=== PATIENT | female | born 1960 | race Caucasian/White ===

== ENCOUNTER 2021-05-20 20:42 | Inpatient (IN) | payer SELFPAY ==
[2021-05-20 23:04] VITALS: BMI 28.9
[2021-05-20] MEDS: Lactated Ringer's 1,000 ML IV SCH (23:47)
[2021-05-21] MEDS ORDERED: Acetaminophen 500 MG TAB PO PRN (01:44)
[2021-05-21] MEDS ORDERED: Potassium Chloride 20 MEQ TAB PO SCH ×2 (02:30→11:30)
[2021-05-21 03:11] LABS: Amphetamine Detected (NotDetected); Barbiturates Screen Not Detected (NotDetected); Benzodiazepine Screen Not Detected (NotDetected); Cocaine Metabolite Screen Not Detected (NotDetected); Methadone Not Detected (NotDetected); Methamphetamine Not Detected (NotDetected); Opiate Screen Not Detected (NotDetected); Oxycodone Screen Not Detected (NotDetected); Phencyclidine (PCP) Not Detected (NotDetected); THC/Cannabinoid Screen Detected (NotDetected); Tricyclic Screen Not Detected (NotDetected)
[2021-05-21 07:12] LABS: #Lymphocytes 1.5 thou/uL (1.20-3.40); #Monocytes 0.5 thou/uL (0.11-0.59); #Neutrophils 6.7 thou/uL (1.40-6.50); %Basophils 0.5 % (0.0-1.0); %Eosinophils 0.4 % (0.0-10.0); %Lymphocytes 16.9 % (21.0-51.0); %Monocytes 5.4 % (0.0-10.0); %Neutrophils 76.9 % (42.0-75.0); Hemoglobin 12.7 g/dL (12.0-16.0); Mean Corpuscular HGB CONC 33.5 g/dL (32.0-36.0); Mean Corpuscular Hemoglobin 29.9 pg (27.0-31.0); Mean Corpuscular Volume 89.3 fL (78.0-98.0); Mean Platelet Volume 8.5 fL (7.4-10.4); Platelet Count 170 thou/uL (130-400); RBC Distribution Width 11.9 % (11.5-14.5); Red Blood Cell (RBC) Count 4.23 mill/uL (4.20-5.40); White Blood Cell (WBC) Count 8.7 thou/uL (4.8-10.8)
[2021-05-21 07:31] LABS: ALT (SGPT) 17 U/L (8-55); AST (SGOT) 20 U/L (5-34); Alkaline Phosphatase 62 U/L (40-110); Anion Gap 7 mmol/L (10-20); BUN (Urea Nitrogen) 7 mg/dL (9.8-20.1); Bilirubin, Total 0.5 mg/dL (0.2-1.2); CRP (Inflammatory) 20.37 mg/dL (= or < 0.5); Calc. Creatinine Clearance 121 mL/min (70-130); Calcium 7.9 mg/dL (7.8-10.44); Carbon Dioxide 27 mmol/L (23-31); Chloride 106 mmol/L (98-107); Globulin 2.3 g/dL (2.4-3.5); Glucose 106 mg/dL (80-115); Potassium 3.4 mmol/L (3.5-5.1); Protein, Total 5.3 g/dL (5.8-8.1); Sodium 137 mmol/L (136-145)
[2021-05-21 07:49] LABS: Syphilis Antibody Nonreactive (Nonreactive); Syphilis Antibody Index 0.04 S/CO (<1.00 Non-Reactive)
[2021-05-21 08:05] LABS: HBSAB Concentration Less than 8.00 mIU/mL; HBSAg Index 0.23 S/CO (0-0.99); HIV (1/2) Antibody/Antigen Non-Reactive (NonReactive); HIV 1/2 INDEX 0.17 S/CO (<1.00); Hep B Surf AB Non-Reactive (NonReactive); Hep B Surf Ag Non-Reactive S/CO (NonReactive); Hep C IgG Ab Non-Reactive (NonReactive); Hep C Index 0.07 S/CO (0-0.79)
[2021-05-21] MEDS: Benzonatate 100 MG CAP PO PRN ×2 (08:12→21:11)
[2021-05-21] MEDS: Enoxaparin Sodium 40 MG/0.4 ML SYRINGE SC SCH (08:12)
[2021-05-21] MEDS: Lactated Ringer's 1,000 ML IV SCH ×2 (08:15→21:11)
[2021-05-21] MEDS ORDERED: Dexamethasone 6 MG in Sodium Chloride 0.9% 50 ML IVPB SCH (09:00)
[2021-05-21] MEDS: metroNIDAZOLE 500 MG in Premix Bag 1 BAG IVPB SCH ×2 (11:21→17:23)
[2021-05-21] MEDS: Vancomycin HCl 25 MG/ML Oral PO SCH ×2 (13:40→17:23)
[2021-05-22] MEDS: Vancomycin HCl 25 MG/ML Oral PO SCH ×4 (00:28→17:31)
[2021-05-22] MEDS: metroNIDAZOLE 500 MG in Premix Bag 1 BAG IVPB SCH ×3 (01:53→17:29)
[2021-05-22] MEDS: Lactated Ringer's 1,000 ML IV SCH (05:29)
[2021-05-22] MEDS: Enoxaparin Sodium 40 MG/0.4 ML SYRINGE SC SCH (08:45)
[2021-05-22] MEDS: Benzonatate 100 MG CAP PO PRN ×2 (08:45→20:17)
[2021-05-22] MEDS ORDERED: Dexamethasone 4 mg/ml Vial SLOW IVP SCH (09:00)
[2021-05-22 10:25] LABS: Anion Gap 12 mmol/L (10-20); BUN (Urea Nitrogen) 7 mg/dL (9.8-20.1); Calc. Creatinine Clearance 121 mL/min (70-130); Calcium 8.8 mg/dL (7.8-10.44); Carbon Dioxide 28 mmol/L (23-31); Chloride 105 mmol/L (98-107); Glucose 102 mg/dL (80-115); Potassium 3.5 mmol/L (3.5-5.1); Sodium 141 mmol/L (136-145)
[2021-05-22 11:44] LABS: #Basophils 0.1 thou/uL (0.0-0.2); #Eosinphils 0.1 thou/uL (0.0-0.7); #Lymphocytes 1.9 thou/uL (1.20-3.40); #Monocytes 0.6 thou/uL (0.11-0.59); #Neutrophils 6.8 thou/uL (1.40-6.50); %Basophils 0.6 % (0.0-1.0); %Eosinophils 0.8 % (0.0-10.0); %Monocytes 6.8 % (0.0-10.0); %Neutrophils 71.8 % (42.0-75.0); Hemoglobin 13.1 g/dL (12.0-16.0); Mean Corpuscular HGB CONC 32.6 g/dL (32.0-36.0); Mean Corpuscular Hemoglobin 29.1 pg (27.0-31.0); Mean Corpuscular Volume 89.5 fL (78.0-98.0); Mean Platelet Volume 8.9 fL (7.4-10.4); Platelet Count 210 thou/uL (130-400); RBC Distribution Width 11.9 % (11.5-14.5); Red Blood Cell (RBC) Count 4.48 mill/uL (4.20-5.40); White Blood Cell (WBC) Count 9.4 thou/uL (4.8-10.8)
[2021-05-22] MEDS ORDERED: Lisinopril 10 MG TAB PO SCH (12:30)
[2021-05-22] MEDS: Acetaminophen 500 MG TAB PO PRN (17:29)
[2021-05-23] MEDS: Vancomycin HCl 25 MG/ML Oral PO SCH ×4 (00:33→17:05)
[2021-05-23] MEDS: Acetaminophen 500 MG TAB PO PRN ×2 (00:40→10:21)
[2021-05-23] MEDS: metroNIDAZOLE 500 MG in Premix Bag 1 BAG IVPB SCH (02:14)
[2021-05-23 05:15] VITALS: TEMP 98.2
[2021-05-23] MEDS: Benzonatate 100 MG CAP PO PRN (06:02)
[2021-05-23 08:12] VITALS: BP 144/81
[2021-05-23] MEDS: Enoxaparin Sodium 40 MG/0.4 ML SYRINGE SC SCH (08:12)
[2021-05-23] MEDS ORDERED: Lisinopril 10 MG TAB PO SCH (09:00)
== END 2021-05-23 19:30 | disposition home or self-care (01) | DRG 177 ==
LOC: T4-B 20:42
PROVIDERS: ADMIT Family Medicine; ATTEND Family Medicine
PROC: 8E0ZXY6 Isolation (ICD-10-PCS; principal; 2021-05-20)
DX: U07.1 COVID-19 (principal); J12.82 Pneumonia due to coronavirus disease 2019; N39.0 Urinary tract infection, site not specified; A04.72 Enterocolitis due to Clostridium difficile, not specified as recurrent; E87.6 Hypokalemia; E86.0 Dehydration; F90.9 Attention-deficit hyperactivity disorder, unspecified type; I10 Essential (primary) hypertension; Z87.891 Personal history of nicotine dependence
CPT/HCPCS: 36415; 80048; 80053; 80306; 82728; 83615; 83630; 84134; 85025; 86140; 86706; 86780; 86803; 87045; 87046; 87081; 87086; 87324; 87328; 87329; 87340; 87389; 87427; 87449; 87493; J0744; J1100; J1650; J7120